=== PATIENT | male | born 1945 | race Caucasian/White ===

== ENCOUNTER 2022-03-03 10:33 | Emergency (ER) | payer OTHER, SELFPAY ==
[2022-03-03] VITALS (14 sets, daily range): BP systolic 131–182; BP diastolic 63–81; PULSE 74–89; RESP 12–22; TEMP 36.5; O2SAT 90–95; BMI 26.5
--- NOTE | 2022-03-03 10:47 | DI.RAD.S_ITS ---
PROCEDURE: XR CHEST 1V INDICATIONS: Possible stroke TECHNIQUE: One view of the chest was acquired. COMPARISON: None. FINDINGS: Surgical changes and devices: Multiple overlying leads and wires Lungs and pleura: Hyperinflation and chronic interstitial changes present. Scattered bilateral atelectasis and or infiltrate present. Right apical emphysematous bulla present. Mediastinum: Mediastinal contours appear normal. Heart size is normal. Bones and chest wall: No suspicious bony lesions. Overlying soft tissues appear unremarkable. IMPRESSION: Emphysematous changes with scarring, chronic interstitial thickening, and scattered bilateral atelectasis and or infiltrate. Approved by: Vitaliy Aguilar M.D. on 03/03/2022 at 10:39
--- NOTE | 2022-03-03 10:47 | DI.CT.S_ITS ---
PROCEDURE: CT ANGIO HEAD AND NECK INDICATIONS: possible TIA,not TPA candidate,sx started 2 day,resolved TECHNIQUE: Pre-contrast 4.5 mm thick sections acquired from the foramen magnum to the vertex. After the administration of intravenous contrast, 1 mm thick sections acquired from the aortic arch through the [place]. Post-contrast 4.5 mm thick sections then re-acquired from the foramen magnum to the vertex. 3-dimensional twcxlos-crlfbewll-hmicgoyrzb (MIP) and/or volume rendering reformats were acquired of the central intracranial vasculature and neck separately. For radiation dose reduction, the following was used: automated exposure control, adjustment of mA and/or kV according to patient size. COMPARISON: None. FINDINGS: Image quality: Excellent. BRAIN: The ventricular system and cortical sulci demonstrate atrophy, consistent for the patient's stated age. There are areas of hypodensity within the periventricular and subcortical white matter. There is no acute intra-or extra axial fluid collection. No acute hemorrhage, mass lesion or midline shift. Brainstem is unremarkable. Globes are symmetrical. Sinuses are aerated. Osseous structures are intact. HEAD CT ANGIOGRAPHY: Anterior circulation: Intracranial internal carotid arteries are normal in size and flow. The flow within the paired anterior cerebral arteries is normal and symmetric. The flow within the middle cerebral arteries is normal and symmetric. The anterior communicating artery is seen. No aneurysms are seen. Posterior circulation: Slight left vertebral artery dominance. Of Visualized portions of the vertebral arteries demonstrate normal caliber, and join to form a normal appearing basilar artery. Flow within the posterior cerebral arteries is normal and symmetric. No aneurysms are seen. NECK CT ANGIOGRAPHY: The origins of the left and right common and right external carotid arteries demonstrate no areas of hemodynamically significant stenosis, vascular occlusion or aneurysmal dilation. Significant areas of calcification are noted in the proximal portion of the left internal carotid artery. Stenosis ranges from 50 to 65%. Areas of stenosis are identified within the proximal 1.9 cm. Calcification is present within the external left carotid artery with proximal stenosis of 50-60%. Origins of the left and right vertebral arteries demonstrate no areas of hemodynamically significant stenosis, vascular occlusion or aneurysmal dilation bovine arch is present consistent with congenital anatomy. Limited, visualized portions of the subclavian vasculature are unremarkable. Prominent emphysematous changes are present within the lung apices. IMPRESSION: 1. No acute intracranial process. 2. Moderate atrophy and chronic microvascular ischemic changes. 3. No areas of hemodynamically significant stenosis, vascular occlusion or aneurysmal dilation within the anterior circulation. 4. No areas of hemodynamically significant stenosis, vascular occlusion or aneurysmal dilation within the posterior circulation. 5. Prominent calcification of the proximal left internal carotid artery ranging from 50-65%. 6. Calcification within the left external carotid artery ranging from 50-60%. Any quantitative measurements of stenosis were performed using NASCET criteria. Dictated by: Anu Taylor M.D. on 03/03/2022 at 12:47 Approved by: Anu Taylor M.D. on 03/03/2022 at 12:58
[2022-03-03 11:19] LABS: INR 1.2 (0.9-1.3); Prothrombin Time 13.4 SECONDS (10.1-12.7)
[2022-03-03 11:22] LABS: PTT Partial Thromboplastin Tim 46 SECONDS (26-36)
[2022-03-03 11:24] LABS: Add Manual Diff / Slide Review NO; Basophils Absolute Auto 100 /uL (0-100); Basophils Percent Auto 0.9 % (0-2); Eosinophils Absolute Auto 200 /uL (0-450); Hematocrit 54.8 % (41-53); Hemoglobin 18.5 g/dL (13.5-17.5); Lymphocytes Absolute Auto 1800 /uL (1100-4500); Lymphocytes Percent Auto 19.2 % (25-40); Mean Corpuscular HGB Conc 33.8 % (30-36); Mean Corpuscular Hemoglobin 30.4 PG (26-34); Monocytes Absolute Auto 700 /uL (0-900); Monocytes Percent Auto 6.9 % (3-14); Neutrophils Absolute Auto 6700 /uL (1500-7000); Platelet Count 153 X10^3/uL (150-400); Red Blood Cell Count 6.09 X10^6/uL (4.5-5.9); Red Cell Distribution Width 14.1 % (11.6-14.8); White Blood Cell Count 9.5 X10^3/uL (4.5-11.0)
[2022-03-03 11:26] LABS: Alanine Aminotransferase 19 IU/L (<50); Albumin 4.2 g/dL (3.5-5.0); Albumin Globulin Ratio 1.2 (1.0-2.8); Alkaline Phosphatase 87 U/L (38-126); Aspartate Aminotransferase 22 IU/L (17-59); BUN Creatinine Ratio 17.3 (6-22); Bilirubin Total 0.8 mg/dL (0.2-1.3); Blood Urea Nitrogen 13 mg/dL (9-20); Calcium 9.3 mg/dL (8.4-10.2); Carbon Dioxide 26 mmol/L (22-32); Chloride 101 mmol/L (98-107); Creatine Kinase 43 U/L (55-170); Estimated Glomerular Filt Rate > 60 mL/min (>60); Globulin 3.5 g/dL (1.7-4.1); Glucose 173 mg/dL (80-110); HEMOLYSIS < 15 (0-50); Magnesium 1.7 mg/dL (1.6-2.3); Potassium 4.2 mmol/L (3.4-5.1); Sodium 141 mmol/L (137-145); Total Protein 7.7 g/dL (6.3-8.2)
--- NOTE | 2022-03-03 11:29 | ED_ITS ---
HPI - Neuro Symptoms/Deficit General Chief Complaint: Neuro Symptoms/Deficit Stated Complaint: possible small stroke, [facility] Time Seen by Provider: 03/03/22 10:50 Source: patient Mode of arrival: Ambulatory History of Present Illness HPI Narrative: Patient is a 76-year-old male history of COPD on home oxygen is, diabetes hypertension hyperlipidemia presenting today is concern for TIA or CVA by his PCP. He states that 2 nights ago he had numbness around his whole lot. He then had some numbness in his right fingertips and then had weakness in his left hand which lasted for about 20 minute. All symptoms have completely resolved still has some numbness in his fingertips. He denies any chest pain or shortness of breath that is worsened no fever or chills. No abdominal pain nausea or vomiting. He has no prior history of TIA or CVA. Related Data Allergies Allergy/AdvReac Type Severity Reaction Status Date / Time No Known Drug Allergies Allergy Verified 03/03/22 10:45 Review of Systems Review of Systems Narrative: GENERAL: Denies chills, fatigue, malaise, fever, sweats, travel HEENT: Denies sinus pain, ear pain, sore throat, difficulty swallowing, neck pain RESPIRATORY: Denies dyspnea, cough, wheezing, hemoptysis, sputum. CARDIOVASCULAR: Denies chest pain, palpitations, orthopnea, edema GASTROINTESTINAL: Denies nausea, vomiting, abdominal pain, diarrhea, constipation, melena. : Denies dysuria, frequency, incontinence, hematuria, urinary retention, flank pain. MUSCULOSKELETAL: Denies weakness, joint pain, or bony pain SKIN: No rash, no erythema, no pruritus NEUROLOGIC: see HPI PSYCHIATRIC: No concerning psychosocial issues. 12 point review of systems is negative except for those stated above and HPI Patient History Social History Smoking Status: Former smoker Smoking Status: Former smoker alcohol intake frequency: holidays/special occasions only Substance Use Type: does not use Exam Initial Vital Signs Initial Vital Signs: Vital Signs Temperature 97.7 F 03/03/22 10:38 Pulse Rate 86 03/03/22 10:38 Respiratory Rate 21 03/03/22 10:38 Blood Pressure 182/81 H 03/03/22 10:38 Pulse Oximetry 93 03/03/22 10:38 Oxygen Delivery Method 03/03/22 10:38 Oxygen Flow Rate 2 03/03/22 10:38 GENERAL: Alert pleasant 76-year-old male no acute distress HEENT: Head atraumatic,EOMI, pupils reactive, face symmetric, [moist] mucous membranes CARDIOVASCULAR: Regular rate and rhythm without murmurs, rubs or gallops. RESPIRATORY: Breath sounds equal bilaterally, no wheezes rales or rhonchi. ABDOMEN: Soft, nontender. Normoactive bowel sounds all 4 quadrants. No guardin g or rebound. EXTREMITIES: Normal range of motion, no clubbing or edema. Neurovascularly intact NEUROLOGICAL: Alert and oriented x4.Normal gait and speech. Cranial nerves II through XII grossly intact. [Good uemhuw-tf-dmew, good koso-nz-dsoz, strength equal bilaterally, no dysarthria or aphasia, sensation in tact to soft touch bilaterally, no visual changes, no facial droop] SKIN: Warm, dry, no laceration, no petechiae, no rashes or lesions. Scores NIH Stroke Scale Level of Conciousness: Alert, keenly responsive Ask month/age: Answers both questions correctly. Open/close eyes, close hand: Performs both tasks correctly Best gaze horizontal: Normal Visual gamez: No visual loss Facial palsy: Normal symetrical movement Left arm drift: No drift for full 10 sec Right arm drift: No drift for full 10 sec Left leg drift: No drift for full 5 sec Right leg drift: No drift for full 5 sec Limb ataxia: Absent Sensory on face/arms/legs: Normal, no sensory loss Best language: No aphasia, normal Dysarthria: Normal Extinction or inattention: No abnormality Total NIH Stroke scale score: 0 Course Orders Ordered: ED Orders 03/03/22 10:47 CT angio head and neck Stat XR chest 1V Stat 03/03/22 10:52 Complete Blood Count AUTO DIFF Stat Comprehensive Metabolic Panel Stat Magnesium Stat Partial Thromboplastin Time Stat Prothrombin Time INR Stat Troponin & CK Cardiac Panel Stat 03/03/22 11:01 EKG-12 Lead Stat 03/03/22 11:22 Urine Drug Screen, Rapid Stat Vital Signs Vital signs: Vital Signs - 8 hr 03/03/22 13:30 03/03/22 13:30 03/03/22 14:00 Pulse Rate 75 Respiratory Rate 15 Blood Pressure 142/63 H 131/67 Pulse Oximetry 92 Oxygen Delivery Method Room Air Oxygen Flow Rate 03/03/22 14:00 03/03/22 14:36 03/03/22 14:38 Pulse Rate 74 78 78 Respiratory Rate 16 18 18 Blood Pressure Pulse Oximetry 92 93 95 Oxygen Delivery Method Room Air Room Air Nasal Cannula Oxygen Flow Rate 2 03/03/22 14:38 03/03/22 15:00 03/03/22 15:00 Pulse Rate 77 Respiratory Rate 20 Blood Pressure 150/68 H 139/76 Pulse Oximetry 95 Oxygen Delivery Method Oxygen Flow Rate MDM - Neuro Symptoms/Deficit Lab Data Result diagrams: 03/03/22 10:52 03/03/22 10:52 Labs: Lab Results 03/03/22 03/03/22 03/03/22 Range/Units 10:52 10:52 10:52 WBC 9.5 (4.5-11.0) X10^3/uL RBC 6.09 H (4.5-5.9) X10^6/uL Hgb 18.5 H (13.5-17.5) g/dL Hct 54.8 H (41-53) % MCV 90.0 (80-100) fL MCH 30.4 (26-34) PG MCHC 33.8 (30-36) % RDW 14.1 (11.6-14.8) % Plt Count 153 (150-400) X10^3/uL Neut % (Auto) 71.0 (50-75) % Lymph % (Auto) 19.2 L (25-40) % Benson % (Auto) 6.9 (3-14) % Eos % (Auto) 2.0 (2-4) % Baso % (Auto) 0.9 (0-2) % Neut # (Auto) 6700 (2334-2726) /uL Lymph # (Auto) 1800 (2811-7346) /uL Benson # (Auto) 700 (0-900) /uL Eos # (Auto) 200 (0-450) /uL Baso # (Auto) 100 (0-100) /uL PT 13.4 H (10.1-12.7) SECONDS INR 1.2 (0.9-1.3) APTT 46 H (26-36) SECONDS Sodium 141 (137-145) mmol/L Potassium 4.2 (3.4-5.1) mmol/L Chloride 101 (98-107) mmol/L Carbon Dioxide 26 (22-32) mmol/L BUN 13 (9-20) mg/dL Creatinine 0.75 (0.66-1.25) mg/dL Estimated GFR > 60 (>60) mL/min BUN/Creatinine Ratio 17.3 (6-22) Glucose 173 H (80-110) mg/dL Calcium 9.3 (8.4-10.2) mg/dL Magnesium 1.7 (1.6-2.3) mg/dL Total Bilirubin 0.8 (0.2-1.3) mg/dL AST 22 (17-59) IU/L ALT 19 (<50) IU/L Alkaline Phosphatase 87 (38-126) U/L Total Creatine Kinase 43 L (55-170) U/L CK-MB (CK-2) TNP CK-MB (CK-2) Rel Index TNP Troponin I < 0.012 (0.01-0.034) ng/mL Total Protein 7.7 (6.3-8.2) g/dL Albumin 4.2 (3.5-5.0) g/dL Globulin 3.5 (1.7-4.1) g/dL Albumin/Globulin Ratio 1.2 (1.0-2.8) Urine RBC (0-5/HPF) Urine WBC (0-5/HPF) Urine Bacteria (None) Ur Culture Indicated? Micro UA Comment U Opiates 300ng/mL cut (Negative) Ur Oxycodone Screen (Negative) Urine Methadone Screen (Negative) Ur Barbiturates Screen (Negative) U Tricyclic Antidepress (Negative) Ur Phencyclidine Scrn (Negative) Ur Amphetamines Screen (Negative) U Methamphetamines Scrn (Negative) Ur MDMA Scrn (Ecstasy) (Negative) U Benzodiazepines Scrn (Negative) Urine Cocaine Screen (Negative) U Marijuana (THC) Screen (Negative) 03/03/22 03/03/22 Range/Units 11:22 11:22 WBC (4.5-11.0) X10^3/uL RBC (4.5-5.9) X10^6/uL Hgb (13.5-17.5) g/dL Hct (41-53) % MCV (80-100) fL MCH (26-34) PG MCHC (30-36) % RDW (11.6-14.8) % Plt Count (150-400) X10^3/uL Neut % (Auto) (50-75) % Lymph % (Auto) (25-40) % Benson % (Auto) (3-14) % Eos % (Auto) (2-4) % Baso % (Auto) (0-2) % Neut # (Auto) (5992-1713) /uL Lymph # (Auto) (9001-1050) /uL Benson # (Auto) (0-900) /uL Eos # (Auto) (0-450) /uL Baso # (Auto) (0-100) /uL PT (10.1-12.7) SECONDS INR (0.9-1.3) APTT (26-36) SECONDS Sodium (137-145) mmol/L Potassium (3.4-5.1) mmol/L Chloride (98-107) mmol/L Carbon Dioxide (22-32) mmol/L BUN (9-20) mg/dL Creatinine (0.66-1.25) mg/dL Estimated GFR (>60) mL/min BUN/Creatinine Ratio (6-22) Glucose (80-110) mg/dL Calcium (8.4-10.2) mg/dL Magnesium (1.6-2.3) mg/dL Total Bilirubin (0.2-1.3) mg/dL AST (17-59) IU/L ALT (<50) IU/L Alkaline Phosphatase (38-126) U/L Total Creatine Kinase (55-170) U/L CK-MB (CK-2) CK-MB (CK-2) Rel Index Troponin I (0.01-0.034) ng/mL Total Protein (6.3-8.2) g/dL Albumin (3.5-5.0) g/dL Globulin (1.7-4.1) g/dL Albumin/Globulin Ratio (1.0-2.8) Urine RBC None seen (0-5/HPF) Urine WBC None seen (0-5/HPF) Urine Bacteria None seen (None) Ur Culture Indicated? Cult not indicated Micro UA Comment Microscopic normal U Opiates 300ng/mL cut Negative (Negative) Ur Oxycodone Screen Negative (Negative) Urine Methadone Screen Negative (Negative) Ur Barbiturates Screen Negative (Negative) U Tricyclic Antidepress Negative (Negative) Ur Phencyclidine Scrn Negative (Negative) Ur Amphetamines Screen Negative (Negative) U Methamphetamines Scrn Negative (Negative) Ur MDMA Scrn (Ecstasy) Negative (Negative) U Benzodiazepines Scrn Negative (Negative) Urine Cocaine Screen Negative (Negative) U Marijuana (THC) Screen Negative (Negative) Urine Dip Bedside Urine Glucose 1000 mg/dl Bedside Urine Bilirubin - Negative Bedside Urine Ketone - Negative Urine Specific [place] 1.015 Bedside Urine Occult Blood - Negative Bedside Urine pH 6.0 Bedside Urine Protein - Negative Bedside Urine Urobilinogen - Negative Bedside Urine Nitrite - Negative Bedside Urine Leukocytes - Negative Esterase Imaging Data CTA - brain/neck: Radiologist's Impression: CT Scan Report Signed Patient: Avila Snowden MR#: [id number] : 1945 Acct:[id number] Age/Sex: 76 / M Date of Service: 03/03/22 Loc: Accession Number: [id number] ?? Procedure: CT angio head and neck Ordering Provider: Starr Reynolds D.O. PROCEDURE:? CT ANGIO HEAD AND NECK ? INDICATIONS:? possible TIA,not TPA candidate,sx started 2 day,resolved ? TECHNIQUE:? Pre-contrast 4.5 mm thick sections acquired from the foramen magnum to the vertex.? After the administration of intravenous contrast, 1 mm thick sections acquired from the aortic arch through the [place].? Post-contrast 4.5 mm thick sections then re- acquired from the foramen magnum to the vertex.? 3-dimensional hkvvccf-zorrrkiwl-lqdplirphd (MIP) and/or volume rendering reformats were acquired of the central intracranial vasculature and neck separately. For radiation dose reduction, the following was used:? automated exposure control, adjustment of mA and/or kV according to patient size.? ? COMPARISON:? None. ? FINDINGS:? Image quality:? Excellent.? ? BRAIN:? The ventricular system and cortical sulci demonstrate atrophy, consistent for the patient's stated age. There are areas of hypodensity within the periventricular and subcortical white matter.? There is no acute intra-or extra axial fluid collection. No acute hemorrhage, mass lesion or midline shift. Brainstem is unremarkable. Globes are symmetrical. Sinuses are aerated. Osseous structures are intact. ? HEAD CT ANGIOGRAPHY:? Anterior circulation:? Intracranial internal carotid arteries are normal in size and flow.? The flow within the paired anterior cerebral arteries is normal and symmetric.? The flow within the middle cerebral arteries is normal and symmetric.? The anterior communicating artery is seen.? No aneurysms are seen.? ? Posterior circulation:? Slight left vertebral artery dominance.? Of Visualized portions of the vertebral arteries demonstrate normal caliber, and join to form a normal appearing basilar artery.? Flow within the posterior cerebral arteries is normal and symmetric.? No aneurysms are seen.? ? NECK CT ANGIOGRAPHY:? The origins of the left and right common and right external carotid arteries demonstrate no areas of hemodynamically significant stenosis, vascular occlusion or aneurysmal dilation.? Significant areas of calcification are noted in the proximal portion of the left internal carotid artery.? Stenosis ranges from 50 to 65%.? Areas of stenosis are identified within the proximal 1.9 cm.? Calcification is present within the external left carotid artery with proximal stenosis of 50-60%.? Origins of the left and right vertebral arteries demonstrate no areas of hemodynamically significant stenosis, vascular occlusion or aneurysmal dilation bovine arch is present consistent with congenital anatomy.? Limited, visualized portions of the subclavian vasculature are unremarkable.? Prominent emphysematous changes are present within the lung apices. ? ? IMPRESSION:? ? 1. No acute intracranial process. ? 2. Moderate atrophy and chronic microvascular ischemic changes. ? 3. No areas of hemodynamically significant stenosis, vascular occlusion or aneurysmal dilation within the anterior circulation. ? 4. No areas of hemodynamically significant stenosis, vascular occlusion or aneurysmal dilation within the posterior circulation. ? 5. Prominent calcification of the proximal left internal carotid artery ranging from 50-65%. ? 6. Calcification within the left external carotid artery ranging from 50-60%.? ? ? Any quantitative measurements of stenosis were performed using NASCET criteria.? ? ? Dictated by: Anu Taylor M.D. on 03/03/2022 at 12:47 ? ? MR brain: Radiologist's Impression: [address] [address] Magnetic Resonance Report Signed Patient: Avila Snowden MR#: [id number] : 1945 Acct:[id number] Age/Sex: 76 / M Date of Service: 03/03/22 Loc: ED Accession Number: [id number] ?? Procedure: MR head/brain wo con Ordering Provider: Starr Reynolds D.O. PROCEDURE:? MR HEAD/BRAIN WO CON ? INDICATIONS:? left hand weakness resolved x 2 days, TIA r ? TECHNIQUE:? Noncontrast axial T1 spin echo, axial T2 fast spin echo, sagittal and axial FLAIR, coronal T2 fast spin echo, axial gradient echo, axial diffusion and ADC through the brain.? ? COMPARISON:? None. ? FINDINGS:? Image quality:? Excellent.? ? CSF Spaces:? Basal cisterns are patent.? No extra-axial fluid collections.? Ventricles are normal in size and shape.? ? Brain:? No intracranial masses or hemorrhage.? Hobbs/white matter interface is normal.? Brainstem appears normal.? Diffusion-weighted images demonstrate no acute infarct.? Normal intravascular flow voids are present.? Moderate atrophy and white matter chronic ischemic change ? Skull and face:? Calvarium has normal marrow signal.? Orbits appear normal.? ? Sinuses:? Sinuses and mastoids are clear.? ? IMPRESSION:? ? Moderate atrophy and white matter chronic ischemic change without acute infarct, hemorrhage or mass lesion ? ? ? Approved by: Vitaliy Aguilar M.D. on 03/03/2022 at 13:39? ECG Data Interpretation: Normal sinus rhythm rate it 87, NC interval 142 QRS 86 QTC 452 MDM Narrative Medical decision making narrative: Patient presents from PCP concern for possible TIA. However patient's symptoms of numbness in her lips and both right and left-sided deficits are not consist ent with CVA. He did have some left-sided weakness possible TIA. However both CT angio and MRI are both negative. Patient is not in the window for any tPA nor is it indicated in this situation. Patient has good follow-up. He is scheduled for a Holter monitor or an echo some sort of outpatient testing. At this time I do think that is appropriate. I do encourage him to take aspirin daily along with blood pressure control. He states that he is monitoring his blood pressure twice a day was noted to be mildly elevated in the ED today. We discussed diabetes control as well. He apparently has been weaning off his insulin in fact when he saw his primary today he stopped his insulin completely stating that is no longer needed. At this time I see no real indication to keep him in the hospital. He has a good follow-up with PCP and no is indication of stroke. Symptoms are not consistent and workup in the emergency department is overall reassuring. Discharge Plan Departure Patient Disposition: Home Clinical Impression: Transient cerebral ischemia Instructions: DI for Transient Ischemic Attack Activity Restrictions/Additional Instructions: *You have been diagnosed with at this time you may have had a mini stroke *What to do: ED workup including MRI CT and blood work did not show any sign of acute stroke. Please monitor blood pressure at home and review with your PCP *Continue to take medications as directed Aspirin 81 mg once a day *Follow up with your primary care provider in 2-3 days or call [phone] *Return to ER if you should have increasing numbness tingling weakness difficulty speaking facial droop or any new, worsening or concerning symptoms Visit Report Forms: Patient Portal/API
[2022-03-03 11:34] LABS: UR Morphine/Opiate cutoff 300 Negative (Negative); Ur Creatinine Normal (Normal); Ur Specific Gravity Normal (Normal); Urine Amphetamines Negative (Negative); Urine Barbiturates Negative (Negative); Urine Benzodiazepines Negative (Negative); Urine Cocaine Negative (Negative); Urine MDMA Negative (Negative); Urine Methadone Negative (Negative); Urine Methamphetamines Negative (Negative); Urine Oxycodone Negative (Negative); Urine Phencyclidine Negative (Negative); Urine Tetrahydrocannabinol Negative (Negative); Urine Tricyclic Antidepressant Negative (Negative); Urine pH Normal (Normal)
[2022-03-03 11:38] LABS: Troponin I < 0.012 ng/mL (0.01-0.034)
--- NOTE | 2022-03-03 11:40 | DI.MRI.S_ITS ---
PROCEDURE: MR HEAD/BRAIN WO CON INDICATIONS: left hand weakness resolved x 2 days, TIA r TECHNIQUE: Noncontrast axial T1 spin echo, axial T2 fast spin echo, sagittal and axial FLAIR, coronal T2 fast spin echo, axial gradient echo, axial diffusion and ADC through the brain. COMPARISON: None. FINDINGS: Image quality: Excellent. CSF Spaces: Basal cisterns are patent. No extra-axial fluid collections. Ventricles are normal in size and shape. Brain: No intracranial masses or hemorrhage. Hobbs/white matter interface is normal. Brainstem appears normal. Diffusion-weighted images demonstrate no acute infarct. Normal intravascular flow voids are present. Moderate atrophy and white matter chronic ischemic change Skull and face: Calvarium has normal marrow signal. Orbits appear normal. Sinuses: Sinuses and mastoids are clear. IMPRESSION: Moderate atrophy and white matter chronic ischemic change without acute infarct, hemorrhage or mass lesion Approved by: Vitaliy Aguilar M.D. on 03/03/2022 at 13:39
[2022-03-03 13:17] LABS: Bacteria Urine None Seen; Culture Indicated Urine Cult Not Indicated; RBC Urine None Seen (0-5/HPF); Urine Comments Microscopic Normal; WBC Urine None Seen (0-5/HPF)
== END 2022-03-03 15:07 | disposition home or self-care (01) ==
PROVIDERS: Emergency Provider Emergency Medicine
DX: G45.9 Transient cerebral ischemic attack, unspecified (principal)
CPT/HCPCS: 36415; 70496; 70498; 70551; 71045; 80053; 80305; 81003; 81015; 82550; 83735; 84484; 85025; 85610; 85730; 93005; 93010; 99285; Q9967